=== PATIENT | female | born 2000 | race Caucasian/White ===

== ENCOUNTER 2022-02-16 00:38 | Emergency (ER) | payer OTHER ==
[2022-02-16 00:46] VITALS: BP 125/80; PULSE 88; RESP 19; TEMP 98
[2022-02-16] MEDS ORDERED: CEPHALEXIN 500 MG CAP PO STA (00:57)
[2022-02-16] MEDS ORDERED: ACETAMINOPHEN TAB 500 MG TAB PO STA (00:57)
[2022-02-16] MEDS ORDERED: IBUPROFEN 800 MG TAB PO STA (00:57)
--- NOTE | 2022-02-16 00:57 | ED ---
Extremity Problem HPI - General Chief complaint: Extremity Problem,Nontraumatic Stated complaint: toe pain Time Seen by Provider: 02/16/22 00:51 Source: patient, RN notes reviewed, old records reviewed Mode of arrival: ambulatory Limitations: no limitations - History of Present Illness Initial comments: This is a 21-year-old female to the emergency department for evaluation, patient presents today for evaluation of toe pain middle toe pain of his left toe. No trauma noted. Patient has significant tenderness and difficulty walking on toes secondary tenderness. Patient is without any other complaint MD Complaint: extremity pain -: days(s) Location: left, other History of Same: Yes -: Yes arthralgia Radiation: none (Hospital to obtain) Severity scale (1-10): 4 Quality: aching Consistency: constant Improves with: nothing Worsens with: nothing Associated Symptoms: other (0) - Related Data Previous Rx's Medication Instructions Recorded Cephalexin [Keflex] 500 mg PO Q6HR #40 cap 02/16/22 Allergies Allergy/AdvReac Type Severity Reaction Status Date / Time No Known Allergies Allergy Verified 02/16/22 00:46 Review of Systems ROS Statement: Those systems with pertinent positive or pertinent negative responses have been documented in the HPI. ROS Other: All systems not noted in ROS Statement are negative. Past Medical History Past Medical History: No Reported History Past Surgical History: No Surgical Hx Reported Past Psychological History: No Psychological Hx Reported Smoking Status: Never smoker Past Alcohol Use History: None Reported Past Drug Use History: None Reported General Exam General appearance: alert, in no apparent distress Head exam: Present: atraumatic, normocephalic, normal inspection Eye exam: Present: normal appearance, PERRL, EOMI. Absent: scleral icterus, conjunctival injection, periorbital swelling ENT exam: Present: normal exam, mucous membranes moist Neck exam: Present: normal inspection. Absent: tenderness, meningismus, lymphadenopathy Respiratory exam: Present: normal lung sounds bilaterally. Absent: respiratory distress, wheezes, rales, rhonchi, stridor Cardiovascular Exam: Present: regular rate, normal rhythm, normal heart sounds. Absent: systolic murmur, diastolic murmur, rubs, gallop, clicks GI/Abdominal exam: Present: soft, normal bowel sounds. Absent: distended, tenderness, guarding, rebound, rigid Extremities exam: Present: normal inspection, full ROM, normal capillary refill, other (Left (Middle toe does have draining paronychia). Absent: tenderness, pedal edema, joint swelling, calf tenderness Back exam: Present: normal inspection Neurological exam: Present: alert, oriented X3, CN II-XII intact Psychiatric exam: Present: normal affect, normal mood Skin exam: Present: warm, dry, intact, normal color. Absent: rash Course Vital Signs 02/16/22 00:44 Temperature 98 F Pulse Rate 88 Respiratory 19 Rate Blood Pressure 125/80 O2 Sat by Pulse 98 Oximetry - Reevaluation(s) Reevaluation #1: 02/16/22 Medical record is reviewed Reevaluation #2: 02/16/22 Patient symptoms are improved Reevaluation #3: 02/16/22 Patient informed of results and questions answered Medical Decision Making - Medical Decision Making 21 female is draining paronychia of toe. Patient given antibiotics encouraged to continue soaking and rinsing, patient can be discharged home Disposition Clinical Impression: Paronychia of toe of right foot Disposition: HOME SELF-CARE Condition: Good Instructions (If sedation given, give patient instructions): Paronychia (ED) Prescriptions: Cephalexin [Keflex] 500 mg PO Q6HR #40 cap Is patient prescribed a controlled substance at d/c from ED?: No Referrals: Beatriz Hobbs MD [Primary Care Provider] - 1-2 days Time of Disposition: 01:00
== END 2022-02-16 01:06 | disposition home or self-care (01) ==
LOC: EC 00:38
DX: L03.031 Cellulitis of right toe (principal)
CPT/HCPCS: 99282

== ENCOUNTER → 2022-02-24 | Outpatient (CLI) | payer OTHER ==
--- NOTE | 2022-02-24 10:25 | US ---
EXAMINATION TYPE: US abdomen complete DATE OF EXAM: 02/24/2022 COMPARISON: NONE CLINICAL HISTORY: R10.9 INTERMITTENT ABD PAIN. Acid reflux TECHNIQUE: Multiple sonographic images of the abdomen are obtained. FINDINGS: EXAM MEASUREMENTS: Liver Length: 14.5 cm Gallbladder Wall: 0.2 cm CBD: 0.3 cm Spleen: 9.2 cm Right Kidney: 12.0 x 4.6 x 6.1 cm Left Kidney: 11.9 x 5.1 x 5.2 cm Pancreas: visualized portions wnl, limited by overlying midline bowel gas Liver: wnl Gallbladder: wnl Evidence for sonographic Sauer's sign: no CBD: visualized portions wnl, limited by overlying bowel gas Spleen: visualized portions wnl, limited by overlying bowel gas Right Kidney: wnl Left Kidney: visualized portions wnl, limited by overlying bowel gas Upper IVC: wnl Abd Aorta: wnl IMPRESSION: 1. Exam is somewhat limited due to bowel gas. Visualized portions of the abdomen appear unremarkable.
== END | disposition home or self-care (01) ==
LOC: RADUSWWP 09:00 → EDUNIT# 09:00
PROVIDERS: ATTEND Family Medicine
DX: R10.9 Unspecified abdominal pain (principal)
CPT/HCPCS: 76700

== ENCOUNTER → 2022-03-05 | Outpatient (CLI) | payer OTHER ==
--- NOTE | 2022-03-05 11:01 | MR ---
EXAMINATION TYPE: MR brain wo con DATE OF EXAM: 03/05/2022 8:13 AM COMPARISON: None. CLINICAL INDICATION:Female, 21 years old with history of R51.9; [facility] TECHNIQUE: Multi planar, multi sequence imaging was performed through the brain including: T1, T2, In version recovery, Diffusion weighted imaging, and gradient echo imaging. No gadolinium was given. FINDINGS: The galeana-white junctions, ventricular system, and cisterns appear unremarkable. . Midline structures show no abnormality. Diffusion-weighted imaging shows no evidence of restricted diffusion. The bone marrow signal is within normal limits. The paranasal sinuses and mild mucosal thickening thr oughout the paranasal sinuses worse in the sphenoid sinuses. The globes are unremarkable. IMPRESSION: 1. No evidence of intracranial mass or acute/subacute infarct. 2. Moderate paranasal sinus disease.
== END | disposition home or self-care (01) ==
LOC: RADMRIMAIN 07:33 → EDUNIT# 07:45
PROVIDERS: ATTEND Family Medicine
DX: R51.9 Headache, unspecified (principal); G89.29 Other chronic pain; J34.89 Other specified disorders of nose and nasal sinuses
CPT/HCPCS: 70551

== ENCOUNTER 2022-04-26 10:50 | Emergency (ER) | payer OTHER ==
[2022-04-26 11:05] VITALS: TEMP 98.4
--- NOTE | 2022-04-26 11:39 | ED ---
URI HPI - General Chief Complaint: Upper Respiratory Infection Stated Complaint: Covid Time Seen by Provider: 04/26/22 11:19 Source: patient, RN notes reviewed Mode of arrival: ambulatory Limitations: no limitations - History of Present Illness Initial Comments: This is a 21-year-old female who presents to the emergency department for coughing and congestion that started this morning. She is being evaluated here with her mother who has similar symptoms. Her brother tested positive for COVID several days ago, and she is requesting a COVID test because she is supposed to go to [place] tomorrow. States that she had an MRI a few days ago and was told that she has small nasal passages and is prone to congestion/sinusitis. She did take an antihistamine last night with mild relief. Denies any respiratory illnesses or difficulty breathing. Denies any fevers, chills, sore throat, dyspnea, chest pain, palpitations, abdominal pain, nausea, vomiting, diarrhea, or back pain. MD Complaint: cough, nasal congestion Context: sick contacts - Related Data Previous Rx's Medication Instructions Recorded Cephalexin [Keflex] 500 mg PO Q6HR #40 cap 02/16/22 Ipratropium [place] 0.06%Nasal 2 spray EA NOSTRIL BID #15 ml 04/26/22 [Atrovent Nasal 0.06%] Allergies Allergy/AdvReac Type Severity Reaction Status Date / Time No Known Allergies Allergy Verified 04/26/22 11:05 Review of Systems ROS Statement: Those systems with pertinent positive or pertinent negative responses have been documented in the HPI. ROS Other: All systems not noted in ROS Statement are negative. Past Medical History Past Medical History: No Reported History History of Any Multi-Drug Resistant Organisms: None Reported Past Surgical History: No Surgical Hx Reported Past Psychological History: No Psychological Hx Reported Smoking Status: Never smoker Past Alcohol Use History: None Reported Past Drug Use History: None Reported General Exam Limitations: no limitations General appearance: alert, in no apparent distress Head exam: Present: atraumatic, normocephalic, normal inspection ENT exam: Present: normal exam, mucous membranes moist, TM's normal bilaterally, normal external ear exam Neck exam: Present: normal inspection. Absent: tenderness, meningismus, lymphadenopathy Respiratory exam: Present: normal lung sounds bilaterally. Absent: respiratory distress, wheezes, rales, rhonchi, stridor Cardiovascular Exam: Present: regular rate, normal rhythm, normal heart sounds. Absent: systolic murmur, diastolic murmur, rubs, gallop, clicks Neurological exam: Present: alert, oriented X3, CN II-XII intact Psychiatric exam: Present: normal affect, normal mood Skin exam: Present: warm, dry, intact, normal color. Absent: rash Course Vital Signs 04/26/22 04/26/22 11:04 12:18 Temperature 98.4 F Pulse Rate 81 78 Respiratory 20 18 Rate Blood Pressure 136/89 122/4 O2 Sat by Pulse 99 99 Oximetry Medical Decision Making - Medical Decision Making This is a 21-year-old female who presents to the emergency department for coughing and congestion. COVID test is negative. Prescription for ipratropium bromide nasal spray provided to help with postnasal drainage contributing to the cough. Recommended a decongestant nasal spray prior to her flight to limit discomfort associated with the congestion. She is instructed to avoid using this for more than 3 consecutive days due to the risk of dependence. Advised to be retested for COVID if symptoms persist, as it may be too early for the test to turn positive. Advised symptomatic management as needed, making sure that she gets plenty of rest, and drinks plenty of water. Return precautions reviewed in depth, the patient is instructed to return to the emergency department with any new, worsening, or concerning symptoms. Patient verbalized understanding. This case was discussed in detail with the attending ED physician. Presentation, findings, and treatment plan discussed in detail as well. - Lab Data Lab Results 04/26/22 Range/Units 11:07 Coronavirus (PCR) Not Detected (Not Detectd) Disposition Clinical Impression: Viral upper respiratory illness Disposition: HOME SELF-CARE Instructions (If sedation given, give patient instructions): Upper Respiratory Infection (ED) Additional Instructions: Return to the emergency department with any new, worsening, or concerning symptoms. The prescribed nasal spray can be used for the nasal drainage that is causing your cough. You can also take [id number] allergy medication with this. Use a decongestant nasal spray before the flight to reduce the discomfort. Avoid using decongestant spray for more than 3 consecutive days, as you may develop a dependence. Continue with symptomatic management as needed. Make sure that you get plenty of rest and remain well-hydrated. If your symptoms persist, consider being retested for COVID. Prescriptions: Ipratropium [place] 0.06%Nasal [Atrovent Nasal 0.06%] 2 spray EA NOSTRIL BID #15 ml Is patient prescribed a controlled substance at d/c from ED?: No Referrals: Beatriz Hobbs MD [Primary Care Provider] - 1-2 days
[2022-04-26 12:21] VITALS: BP 122/4; PULSE 78; RESP 18
== END 2022-04-26 12:21 | disposition home or self-care (01) ==
LOC: EC 10:50
DX: J06.9 Acute upper respiratory infection, unspecified (principal); Z20.822 Contact with and (suspected) exposure to COVID-19
CPT/HCPCS: 87635; 99283

== ENCOUNTER 2022-08-13 01:03 | Observation (INO) | payer OTHER ==
[2022-08-13] MEDS ORDERED: SODIUM CHLORIDE 0.9% 1,000 ML IV STA ×2 (01:11→01:57)
[2022-08-13 02:00] LABS: Appearance,Urine Clear (Clear); Basophils % (A) 0 %; Bilirubin,Urine Negative (Negative); Blood,Urine Negative (Negative); Color,Urine Light Yellow; Eosinophils % (A) 0 %; Glucose,Urine (UA) Negative (Negative); HCT 36.8 % (34.0-46.0); HGB 11.8 gm/dL (11.4-16.0); Ketones,Urine Negative (Negative); Leukocyte Esterase,Urine Negative (Negative); Lymphocytes # (A) 1.4 k/uL (1.0-4.8); Lymphocytes % (A) 13 %; MCH 25.1 pg (25.0-35.0); MCHC 32.2 g/dL (31.0-37.0); MCV 78.1 fL (80.0-100.0); Mean Platelet Volume 8.3; Monocytes # (A) 0.4 k/uL (0-1.0); Monocytes % (A) 4 %; Neutrophils # (A) 9.1 k/uL (1.3-7.7); Neutrophils % (A) 82 %; Nitrite,Urine Negative (Negative); PH, Urine 6.5 (5.0-8.0); Platelet Count 233 k/uL (150-450); Protein,Urine Negative (Negative); RBC 4.71 m/uL (3.80-5.40); RDW 13.9 % (11.5-15.5); Specific Gravity,Urine 1.006 (1.001-1.035); Urobilinogen,Urine <2.0 mg/dL (<2.0); WBC 11.1 k/uL (4.0-11.0)
--- NOTE | 2022-08-13 02:02 | ED ---
General Adult HPI - General Chief complaint: Psychiatric Symptoms Stated complaint: Mental Health Time Seen by Provider: 08/13/22 01:06 Source: patient, RN notes reviewed, old records reviewed Mode of arrival: EMS Limitations: no limitations - History of Present Illness Initial comments: Patient is a 21-year-old female who presents emergency Department following an overdose and suicide attempt. Patient has a history of psychiatric illness. Is on Prozac at home. Was brought in by EMS over concern for suicidal attempt. States at midnight, or a little before she took 10-30 Prozac pills at once. States it was a suicidal attempt. States in the past she did attempt to take Tylenol for suicidal attempt was unsuccessful. Also reports a history of self injuring behavior. States she has been under more stress lately which prompted her to feel like this. Denies any homicidal attempts, plans, ideations. Denies any visual or auditory hallucinations. He was brought in by EMS for further evaluation. Denies any acute complaints at this time but states she feels anxious. Denies chest pain, shortness of breath, abdominal pain, nausea, vomiting. Presents for evaluation following overdose. Denies taking any other medications or ingesting any other drugs. Denies alcohol use. No other medical problems. Patient was evaluated at approximately 1:06 AM.Patient was petitioned by [employer] for her suicide attempt. - Related Data Previous Rx's Medication Instructions Recorded Cephalexin [Keflex] 500 mg PO Q6HR #40 cap 02/16/22 Ipratropium [place] 0.06%Nasal 2 spray EA NOSTRIL BID #15 ml 04/26/22 [Atrovent Nasal 0.06%] Allergies Allergy/AdvReac Type Severity Reaction Status Date / Time No Known Allergies Allergy Verified 04/26/22 11:05 Review of Systems ROS Statement: Those systems with pertinent positive or pertinent negative responses have been documented in the HPI. Review of Systems: CONST: Denies fever EYES: Denies blurry vision ENT: Denies nasal congestion C/V: Denies Chest pain RESP: Denies shortness of breath GI: Denies abdominal pain : Denies dysuria SKIN: Denies rash. MSK: Denies joint pain. NEURO: Denies headache PSYCH: Denies homicidal ideations/plans/attempts. Denies visual or auditory hallucinations. She endorses suicide attempt via overdose of Prozac. ROS Other: All systems not noted in ROS Statement are negative. Past Medical History Past Medical History: No Reported History History of Any Multi-Drug Resistant Organisms: None Reported Past Surgical History: No Surgical Hx Reported Past Psychological History: No Psychological Hx Reported Smoking Status: Never smoker Past Alcohol Use History: None Reported Past Drug Use History: None Reported General Exam - General Exam Comments Initial Comments: General: Patient appears anxious. HEAD: Normal with no signs of head trauma. EYES: PERRLA, EOMI, conjunctiva normal, no discharge. Pupils are 3 mm equal bilaterally. ENT: Hearing grossly intact, normal oropharynx. RESPIRATORY: Clear breath sounds bilaterally. No wheezes, rales, or rhonchi. C/V: Tachycardic with a regular rhythm. S1 and S2 auscultated, no edema, peripheral pulses 2+ and intact throughout ABD: Abd is soft, nontender, nondistended EXT: Normal range of motion, no obvious deformity SKIN: No rashes or lesions observed on exposed skin. NEURO: Alert and oriented x 4. Cranial nerves II-XII intact. No focal sensory or strength deficits. GCS of 15. NIH is 0. Limitations: no limitations Course Vital Signs 08/13/22 08/13/22 01:22 02:35 Temperature 99 F Pulse Rate 128 H 112 H Respiratory 16 16 Rate Blood Pressure 151/95 O2 Sat by Pulse 98 Oximetry Medical Decision Making - Medical Decision Making Based the patient's presentation and physical exam, she presents for Prozac overdose. She currently has no symptoms. Overdose started approximately one hour ago. We will obtain overdose workup including labs, EKG, chest x-ray. She'll be given IV fluids as well as IV Zofran. Patient was in agreement this plan. Vital signs are remarkable for tachycardia the patient is extremely anxious. We will continue to monitor. Patient was placed in green scrubs. Sitter was ordered. Suicide precautions were ordered. Recheck to poison control, and they recommend an 8 hour observation period for the patient. They instructed us to watch for BREAKER LAYER depression or possible seizures with high overdoses. Treat with benzos. He also recommended that we replace any electrolyte specifically magnesium, potassium, calcium. There are like us to watch for QT prolongation as well. Initial EKG shows no signs of QT prolongation. Patient is tachycardic. We will repeat EKG approximately one hour.Patient's laboratory studies returned remarkable for a slight leukocytosis of 11.1 which is likely reactive. Patient is not . Troponin is undetectable. UDS is positive for benzos. Alcohol level is negative. Remainder of the labs are unremarkable. X-ray s howed no acute cardio pulmonary process. Repeat EKG was unremarkable. Patient is no QT prolongation. On reevaluation, there is no neurological deficits at this time. I attempted the patient as well as her mother. She'll be admitted to the hospital for observation for 8 hours and then psychiatry will evaluate her. They were in agreement this plan. I spoke with the admitting physician, Dr. Lawrence who accepted the patient. Was pt. sent in by a medical professional or institution (, PA, CHEESE SUPERVISOR, urgent care, hospital, or correction...) When possible be specific @ -No Did you speak to anyone other than the patient for history (EMS, parent, family, police, friend...)? What history was obtained from this source @ -Yes, patient's mother who provided some additional history. Did you review nursing and triage notes (agree or disagree)? Why? @ -I reviewed and agree with nursing and triage notes Were old charts reviewed (outside hosp., previous admission, EMS record, old EKG, old radiological studies, urgent care reports/EKG's, correction records)? Report findings @ -Yes, I reviewed old charts. Differential Diagnosis (chest pain, altered mental status, abdominal pain women, abdominal pain men, vaginal bleeding, weakness, fever, dyspnea, syncope, headache, dizziness, GI bleed, back pain, seizure, CVA, palpatations, mental health)? @ -Overdose, suicide attempt, acute psychosis, anxiety. This list is not all- inclusive. EKG interpreted by me (3pts min.). @ -As above X-rays interpreted by me (1pt min.). @ -Chest x-ray revealed no acute cardio pulmonary process. CT interpreted by me (1pt min.). @ -None done U/S interpreted by me (1pt. min.). @ -None done What testing was considered but not performed or refused? (CT, X-rays, U/S, labs)? Why? @ -None What meds were considered but not given or refused? Why? @ -None Did you discuss the management of the patient with other professionals (professionals i.e. , PA, CHEESE SUPERVISOR, lab, RT, psych nurse, social service technician, supply analyst, teacher, jail officer, medical case worker)? Give summary @ -Yes, poison control who recommended 8 hour observation, monitoring for BREAKER LAYER depression or seizures and to treat with benzos if seizing. Monitor electrolytes. Monitor for QT prolongation. I spoke with [facility] admitting physician Dr. Lawrence who accepted the patient. Was smoking cessation discussed for >3mins.? @ -No Was critical care preformed (if so, how long)? @ -Yes. 35 minutes. Were there social determinants of health that impacted care today? How? (Homelessness, low income, unemployed, alcoholism, drug addiction, transportation, low edu. Level, literacy, decrease access to med. care, mcc, rehab)? @ -No Was there de-escalation of care discussed even if they declined (Discuss DNR or withdrawal of care, Hospice)? DNR status @ -No What co-morbidities impacted this encounter? (DM, HTN, Smoking, COPD, CAD, Cancer, CVA, ARF, Chemo, Hep., AIDS, mental health diagnosis, sleep apnea, morbid obesity)? @ -None Was patient admitted / discharged? Hospital course, mention meds given and route, prescriptions, significant lab abnormalities, going to OR and other pertinent info. @ -Admitted to the hospital for observation. See above for her ED course. Undiagnosed new problem with uncertain prognosis? @ -No Drug Therapy requiring intensive monitoring for toxicity (Heparin, Nitro, Insulin, Cardizem)? @ -No Were any procedures done? @ -No Diagnosis/symptom? @ -Intentional Overdose, Prozac Acute, or Chronic, or Acute on Chronic? @ -Acute Uncomplicated (without systemic symptoms) or Complicated (systemic symptoms)? @ -Currently uncomplicated. Side effects of treatment? @ -No Exacerbation, Progression, or Severe Exacerbation? @ -No Poses a threat to life or bodily function? How? (Chest pain, [place], ND, pneumonia, PE, COPD, DKA, ARF, appy, cholecystitis, CVA, Diverticulitis, Homicidal, Suicidal, threat to staff... and all critical care pts) @ -Yes, patient is at risk for significant morbidity mortality. Diagnosis/symptom? @ -Suicide attempt Acute, or Chronic, or Acute on Chronic? @ -Acute Uncomplicated (without systemic symptoms) or Complicated (systemic symptoms)? @ -Complicated Side effects of treatment? @ -None Exacerbation, Progression, or Severe Exacerbation] @ -no Poses a threat to life or bodily function? @ -Yes, patient is at risk for significant morbidity mortality. Diagnosis/symptom? @ -Sinus tachycardia Acute, or Chronic, or Acute on Chronic? @ -Acute Uncomplicated (without systemic symptoms) or Complicated (systemic symptoms)? @ -Uncomplicated Side effects of treatment? @ -none Exacerbation, Progression, or Severe Exacerbation] @ -no Poses a threat to life or bodily function? @ -no - Lab Data Result diagrams: 08/13/22 01:33 08/13/22 01:33 Lab Results 08/13/22 08/13/22 08/13/22 Range/Units :33 01::33 WBC 11.1 H (4.0-11.0) k/uL RBC 4.71 (3.80-5.40) m/uL Hgb 11.8 (11.4-16.0) gm/dL Hct 36.8 (34.0-46.0) % MCV 78.1 L (80.0-100.0) fL MCH 25.1 (25.0-35.0) pg MCHC 32.2 (31.0-37.0) g/dL RDW 13.9 (11.5-15.5) % Plt Count 233 (150-450) k/uL MPV 8.3 Neutrophils % 82 % Lymphocytes % 13 % Monocytes % 4 % Eosinophils % 0 % Basophils % 0 % Neutrophils # 9.1 H (1.3-7.7) k/uL Lymphocytes # 1.4 (1.0-4.8) k/uL Monocytes # 0.4 (0-1.0) k/uL Eosinophils # 0.0 (0-0.7) k/uL Basophils # 0.0 (0-0.2) k/uL PT (9.0-12.0) sec INR (<1.2) Sodium (137-145) mmol/L Potassium (3.5-5.1) mmol/L Chloride (98-107) mmol/L Carbon Dioxide (22-30) mmol/L Anion Gap mmol/L BUN (7-17) mg/dL Creatinine (0.52-1.04) mg/dL Est GFR (CKD-EPI)AfAm (>60 ml/min/1.73 sqM) Est GFR (CKD-EPI)NonAf (>60 ml/min/1.73 sqM) Glucose (74-99) mg/dL Calcium (8.4-10.2) mg/dL Total Bilirubin (0.2-1.3) mg/dL AST (14-36) U/L ALT (4-34) U/L Alkaline Phosphatase (38-126) U/L Troponin I (0.000-0.034) ng/mL Total Protein (6.3-8.2) g/dL Albumin (3.5-5.0) g/dL Amylase (30-110) U/L Lipase (23-300) U/L HCG, Qual Urine Color Urine Appearance (Clear) Urine pH (5.0-8.0) Ur Specific [place] (1.001-1.035) Urine Protein (Negative) Urine Glucose (UA) (Negative) Urine Ketones (Negative) Urine Blood (Negative) Urine Nitrite (Negative) Urine Bilirubin (Negative) Urine Urobilinogen (<2.0) mg/dL Ur Leukocyte Esterase (Negative) Urine HCG, Qual Not Detected (Not Detectd) Salicylates mg/dL Urine Opiates Screen Not Detected (NotDetected) Ur Oxycodone Screen Not Detected (NotDetected) Urine Methadone Screen Not Detected (NotDetected) Ur Propoxyphene Screen Not Detected (NotDetected) Acetaminophen ug/mL Ur Barbiturates Screen Not Detected (NotDetected) U Tricyclic Antidepress Not Detected (NotDetected) Ur Phencyclidine Scrn Not Detected (NotDetected) Ur Amphetamines Screen Not Detected (NotDetected) U Methamphetamines Scrn Not Detected (NotDetected) U Benzodiazepines Scrn Detected H (NotDetected) Urine Cocaine Screen Not Detected (NotDetected) U Marijuana (THC) Screen Not Detected (NotDetected) Serum Alcohol mg/dL 08/13/22 08/13/22 08/13/22 Range/Units 01:33 01:33 01:33 WBC (4.0-11.0) k/uL RBC (3.80-5.40) m/uL Hgb (11.4-16.0) gm/dL Hct (34.0-46.0) % MCV (80.0-100.0) fL MCH (25.0-35.0) pg MCHC (31.0-37.0) g/dL RDW (11.5-15.5) % Plt Count (150-450) k/uL MPV Neutrophils % % Lymphocytes % % Monocytes % % Eosinophils % % Basophils % % Neutrophils # (1.3-7.7) k/uL Lymphocytes # (1.0-4.8) k/uL Monocytes # (0-1.0) k/uL Eosinophils # (0-0.7) k/uL Basophils # (0-0.2) k/uL PT 9.9 (9.0-12.0) sec INR 0.9 (<1.2) Sodium 138 (137-145) mmol/L Potassium 4.1 (3.5-5.1) mmol/L Chloride 108 H (98-107) mmol/L Carbon Dioxide 20 L (22-30) mmol/L Anion Gap 10 mmol/L BUN 8 (7-17) mg/dL Creatinine 0.56 (0.52-1.04) mg/dL Est GFR (CKD-EPI)AfAm >90 (>60 ml/min/1.73 sqM) Est GFR (CKD-EPI)NonAf >90 (>60 ml/min/1.73 sqM) Glucose 126 H (74-99) mg/dL Calcium 8.6 (8.4-10.2) mg/dL Total Bilirubin 0.3 (0.2-1.3) mg/dL AST 18 (14-36) U/L ALT 20 (4-34) U/L Alkaline Phosphatase 102 (38-126) U/L Troponin I (0.000-0.034) ng/mL Total Protein 6.6 (6.3-8.2) g/dL Albumin 3.9 (3.5-5.0) g/dL Amylase 39 (30-110) U/L Lipase 87 (23-300) U/L HCG, Qual Not Detected Urine Color Light Yellow Urine Appearance Clear (Clear) Urine pH 6.5 (5.0-8.0) Ur Specific [place] 1.006 (1.001-1.035) Urine Protein Negative (Negative) Urine Glucose (UA) Negative (Negative) Urine Ketones Negative (Negative) Urine Blood Negative (Negative) Urine Nitrite Negative (Negative) Urine Bilirubin Negative (Negative) Urine Urobilinogen <2.0 (<2.0) mg/dL Ur Leukocyte Esterase Negative (Negative) Urine HCG, Qual (Not Detectd) Salicylates <1.0 mg/dL Urine Opiates Screen (NotDetected) Ur Oxycodone Screen (NotDetected) Urine Methadone Screen (NotDetected) Ur Propoxyphene Screen (NotDetected) Acetaminophen <10.0 ug/mL Ur Barbiturates Screen (NotDetected) U Tricyclic Antidepress (NotDetected) Ur Phencyclidine Scrn (NotDetected) Ur Amphetamines Screen (NotDetected) U Methamphetamines Scrn (NotDetected) U Benzodiazepines Scrn (NotDetected) Urine Cocaine Screen (NotDetected) U Marijuana (THC) Screen (NotDetected) Serum Alcohol <10 mg/dL 08/13/22 Range/Units 01:33 WBC (4.0-11.0) k/uL RBC (3.80-5.40) m/uL Hgb (11.4-16.0) gm/dL Hct (34.0-46.0) % MCV (80.0-100.0) fL MCH (25.0-35.0) pg MCHC (31.0-37.0) g/dL RDW (11.5-15.5) % Plt Count (150-450) k/uL MPV Neutrophils % % Lymphocytes % % Monocytes % % Eosinophils % % Basophils % % Neutrophils # (1.3-7.7) k/uL Lymphocytes # (1.0-4.8) k/uL Monocytes # (0-1.0) k/uL Eosinophils # (0-0.7) k/uL Basophils # (0-0.2) k/uL PT (9.0-12.0) sec INR (<1.2) Sodium (137-145) mmol/L Potassium (3.5-5.1) mmol/L Chloride (98-107) mmol/L Carbon Dioxide (22-30) mmol/L Anion Gap mmol/L BUN (7-17) mg/dL Creatinine (0.52-1.04) mg/dL Est GFR (CKD-EPI)AfAm (>60 ml/min/1.73 sqM) Est GFR (CKD-EPI)NonAf (>60 ml/min/1.73 sqM) Glucose (74-99) mg/dL Calcium (8.4-10.2) mg/dL Total Bilirubin (0.2-1.3) mg/dL AST (14-36) U/L ALT (4-34) U/L Alkaline Phosphatase (38-126) U/L Troponin I <0.012 (0.000-0.034) ng/mL Total Protein (6.3-8.2) g/dL Albumin (3.5-5.0) g/dL Amylase (30-110) U/L Lipase (23-300) U/L HCG, Qual Urine Color Urine Appearance (Clear) Urine pH (5.0-8.0) Ur Specific [place] (1.001-1.035) Urine Protein (Negative) Urine Glucose (UA) (Negative) Urine Ketones (Negative) Urine Blood (Negative) Urine Nitrite (Negative) Urine Bilirubin (Negative) Urine Urobilinogen (<2.0) mg/dL Ur Leukocyte Esterase (Negative) Urine HCG, Qual (Not Detectd) Salicylates mg/dL Urine Opiates Screen (NotDetected) Ur Oxycodone Screen (NotDetected) Urine Methadone Screen (NotDetected) Ur Propoxyphene Screen (NotDetected) Acetaminophen ug/mL Ur Barbiturates Screen (NotDetected) U Tricyclic Antidepress (NotDetected) Ur Phencyclidine Scrn (NotDetected) Ur Amphetamines Screen (NotDetected) U Methamphetamines Scrn (NotDetected) U Benzodiazepines Scrn (NotDetected) Urine Cocaine Screen (NotDetected) U Marijuana (THC) Screen (NotDetected) Serum Alcohol mg/dL - EKG Data -: EKG Interpreted by Me EKG Comments: 12-lead Electrocardiogram Interpretation Note EKG was reviewed and interpreted by myself. 12-lead ECG performed at 0114 is interpreted by me as revealing sinus tachycardia at a rate of 140 beats per minute. [place] is normal. [place] interval is 105 ms, QRS duration is 82 ms, QTc is 410 ms.. There were no ST or T wave abnormalities to suggest myocardial ischemia or injury. R wave progression across the precordium was satisfactory. By my interpretation this EKG is non-diagnostic for acute ischemia. No prior ekg for comparison. 12-lead Electrocardiogram Interpretation Note EKG was reviewed and interpreted by myself. 12-lead ECG performed at 2030 is interpreted by me as revealing sinus tachycardia at a rate of 110 beats per minute. [place] is normal. [place] interval is 140 ms, QRS duration is 85 ms, QTc is 397 ms.. There were no ST or T wave abnormalities to suggest myocardial ischemia or injury. R wave progression across the precordium was satisfactory. By my interpretation this EKG is non-diagnostic for acute ischemia. When compared with EKG from earlier, shows improvement in the tachycardia. QT interval remains within normal limits. Critical Care Time Critical Care Time: Yes Total Critical Care Time: 35 Critical Care Time: Upon my evaluation, this patient had a high probability of imminent or life- threatening deterioration due to suicide attempt, Prozac ingestion overdose, which required my direct attention, intervention, and personal management. I have personally provided 35 minutes of critical care time exclusive of time spent on separately billable procedures. Time includes review of laboratory data, radiology results, discussion with consultants, and monitoring for potential decompensation. Interventions were performed as documented in my note. Disposition Clinical Impression: Overdose by ingestion, Sinus tachycardia, Suicide attempt Disposition: ADMITTED IP TO THIS HOSP Condition: Stable Referrals: Beatriz Hobbs MD [Primary Care Provider] - 1-2 days Time of Disposition: 03:00
[2022-08-13 02:11] LABS: INR 0.9 (<1.2); Prothrombin Time 9.9 sec (9.0-12.0)
--- NOTE | 2022-08-13 02:17 | XR ---
EXAMINATION TYPE: XR chest 1V portable DATE OF EXAM: 08/13/2022 COMPARISON: NONE HISTORY: Overdose TECHNIQUE: Single view FINDINGS: Heart and mediastinum are normal. Lungs are clear. Diaphragm is normal. Bony thorax appears normal. IMPRESSION: Normal chest
[2022-08-13 02:22] LABS: ALT 20 U/L (4-34); AST 18 U/L (14-36); Acetaminophen <10.0 ug/mL; African American GFR (CKD) >90 (>60 ml/min/1.73 sqM); Albumin 3.9 g/dL (3.5-5.0); Alcohol <10 mg/dL; Alkaline Phosphatase 102 U/L (38-126); Amylase 39 U/L (30-110); Anion Gap 10 mmol/L; Blood Urea Nitrogen 8 mg/dL (7-17); Calcium 8.6 mg/dL (8.4-10.2); Carbon Dioxide 20 mmol/L (22-30); Chloride 108 mmol/L (98-107); Glucose 126 mg/dL (74-99); Lipase 87 U/L (23-300); Non-African American GFR(CKD) >90 (>60 ml/min/1.73 sqM); Potassium 4.1 mmol/L (3.5-5.1); Salicylate <1.0 mg/dL; Sodium 138 mmol/L (137-145); Total Bilirubin 0.3 mg/dL (0.2-1.3); Total Protein 6.6 g/dL (6.3-8.2)
[2022-08-13 02:23] LABS: Amphetamine Screen,Urine Not Detected (NotDetected); Barbiturate Screen,Urine Not Detected (NotDetected); Benzodiazepines Screen,Urine Detected (NotDetected); Cocaine Screen,Urine Not Detected (NotDetected); Methadone Screen, Urine Not Detected (NotDetected); Opiate Screen,Urine Not Detected (NotDetected); Oxycodone Screen, Urine Not Detected (NotDetected); Phencyclidine Screen,Urine Not Detected (NotDetected); Tricyclic Antidepressant,Urine Not Detected (NotDetected); Urn Cannabinoid Scrn Not Detected (NotDetected)
[2022-08-13 02:27] LABS: HCG,Qualitative Serum Not Detected
[2022-08-13] MEDS ORDERED: NALOXONE 0.4 MG/ML 1 ML VIAL IV PRN (03:08)
[2022-08-13] MEDS ORDERED: ONDANSETRON 4 MG/2 ML VIAL IVP PRN (03:08)
[2022-08-13 05:15] VITALS: RESP 16
[2022-08-13] MEDS: HEPARIN SODIUM,PORCINE/PF 5,000 UNIT/0.5 ML SYRINGE SQ SCH ×2 (08:32→17:39)
[2022-08-13 13:15] VITALS: BP 112/72; PULSE 81; TEMP 98
[2022-08-13] MEDS ORDERED: FAMOTIDINE 20 MG TAB PO PRN (14:17)
[2022-08-13] MEDS ORDERED: ALBUTEROL NEBULIZED 2.5 MG/3 ML INHALATION PRN (14:17)
--- NOTE | 2022-08-13 14:25 | P.CN ---
Psychiatric Consult - . Consult date: 08/13/22 Consult:: 08/13/22 14:25 IDENTIFYING DATA: This patient is a 21-year-old female with a significant history of depression who presents her hospital on 08/13/2022 after an intentional overdose on Prozac. HISTORY OF PRESENT ILLNESS: The patient presented to the hospital on 08/13/2022 after an intentional overdose on Prozac. The patient reported that she was in an argument with her boyfriend and during this argument, the patient took a bunch of Prozac pills in her hand and ingested them all at once. She reports her intention at the time was to "go numb." She reports that 5 minutes after overdosing, she immediately wanted her family to notify EMS services. She was subsequently brought to the emergency department and the patient by [place] police. She reports that even prior to this overdose attempt, she has been dealing with significant symptoms of depression including decreased motivation, decreased energy, irregular appetite, and frequent crying episodes. She describes that she has been constantly laying down in bed all day. She does report that even prior to this overdose attempt, she engaged in self-injurious behavior by cutting herself on her left forearm 2 nights ago. Patient states th at she has had numerous attempts at suicide in the past by overdose however this is the first time that she has been to the hospital for this. In regards other mood disorders, the patient is not endorsing any significant symptoms of miim. She denies any periods of excessive energy, grandiosity, or increased goal-directed activity. In regards to psychotic symptoms, the patient denies any significant history of auditory or visual hallucinations. She denies any paranoia or other delusions. PAST PSYCHIATRIC HISTORY: Patient has a a history of depression. She has a previous trial with Prozac. Patient denies any previous psychiatric hospitalizations. Patient denies any psychiatric outpatient follow-up as she recently moved from [place] to [place] to be with her mother. She reports mul tiple attempts at suicide in the past by overdose. PAST MEDICAL HISTORY: Past Medical History: GERD History of Any Multi-Drug Resistant Organisms: None Reported Past Surgical History: No Surgical Hx Reported Past Psychological History: No Psychological Hx Reported Smoking Status: Never smoker Past Alcohol Use History: None Reported Past Drug Use History: None Reported ALLERGIES: NO KNOWN DRUG ALLERGIES CHEMICAL DEPENDENCY HISTORY: Patient reports no tobacco, alcohol, marijuana, or illicit drug use. FAMILY PSYCHIATRIC/SUBSTANCE USE HISTORY: The patient reports that "my whole family has bipolar disorder, depression, and anxiety." She states that this entails her 3 brothers and both of her parents. SOCIAL HISTORY: Patient was born and raised in [place]. She moved to [place] in 2020 to be with her mother. She then went to stay with her father for 3-4 months and then shortly returning back to [place]. Her parents have been and she was 8 years old. She reports that she is single, never , and has no children. She reports graduating high school. She was last employed in April when she was working at [employer]. She currently lives with her best friend, boyfriend, 3 brothers, stepfather, and mother. MENTAL STATUS EXAM: General Appearance: Patient appears to be stated age is alert, pleasant, and cooperative. Patient appears to have fair hygiene and grooming wearing hospital gown with fair eye contact. Behavior: Patient is calmly lying in bed without any agitated behavior. Speech: Patient's speech is fluent and nonpressured. Mood/Affect: Patient reports their mood is "just feeling numb", affect is histrionic and slightly expansive. Suicidality/Homicidality: Patient denies any current suicidal or homicidal ideation. Perceptions: Patient denies any visual hallucinations and denies any auditory hallucinations Though content/process: There is no evidence of any delusional thought content and thought process is linear and goal-directed. Memory and concentration: AOX3, grossly intact for the purposes of this session. Can spell "WORLD" backwards Judgment and insight: poor Vital Signs Temp 98.0 F 08/13/22 12:17 Pulse 81 08/13/22 12:17 Resp 16 08/13/22 12:17 BP 112/72 08/13/22 12:17 Pulse Ox 98 08/13/22 12:17 FiO2 Intake & Output 08/12/22 08/13/22 08/13/22 18:59 06:59 18:59 Intake Total 1999 Balance 1999 Weight 90.718 kg Intake: Intake, IV Titration 2000 Amount Sodium Chloride 0.9% 1, 1000 000 ml @ 999 mls/hr IV . Q1H1M STA Rx#:[id number] Sodium Chloride 0.9% 1, 1000 000 ml @ 999 mls/hr IV . Q1H1M STA Rx#:[id number] Laboratory Results - Last 24 Hours 08/13/22 08/13/22 08/13/22 01:33 01:33 01:33 WBC 11.1 H RBC 4.71 Hgb 11.8 Hct 36.8 MCV 78.1 L MCH 25.1 MCHC 32.2 RDW 13.9 Plt Count 233 MPV 8.3 Neutrophils % 82 Lymphocytes % 13 Monocytes % 4 Eosinophils % 0 Basophils % 0 Neutrophils # 9.1 H Lymphocytes # 1.4 Monocytes # 0.4 Eosinophils # 0.0 Basophils # 0.0 PT INR Sodium Potassium Chloride Carbon Dioxide Anion Gap BUN Creatinine Est GFR (CKD-EPI)AfAm Est GFR (CKD-EPI)NonAf Glucose Plasma Lactic Acid Mark Calcium Total Bilirubin AST ALT Alkaline Phosphatase Troponin I Total Protein Albumin Amylase Lipase HCG, Qual Urine Color Urine Appearance Urine pH Ur Specific [place] Urine Protein Urine Glucose (UA) Urine Ketones Urine Blood Urine Nitrite Urine Bilirubin Urine Urobilinogen Ur Leukocyte Esterase Urine HCG, Qual Not Detected Salicylates Urine Opiates Screen Not Detected Ur Oxycodone Screen Not Detected Urine Methadone Screen Not Detected Ur Propoxyphene Screen Not Detected Acetaminophen Ur Barbiturates Screen Not Detected U Tricyclic Antidepress Not Detected Ur Phencyclidine Scrn Not Detected Ur Amphetamines Screen Not Detected U Methamphetamines Scrn Not Detected U Benzodiazepines Scrn Detected H Urine Cocaine Screen Not Detected U Marijuana (THC) Screen Not Detected Serum Alcohol 08/13/22 08/13/22 08/13/22 01:33 01:33 01:33 WBC RBC Hgb Hct MCV MCH MCHC RDW Plt Count MPV Neutrophils % Lymphocytes % Monocytes % Eosinophils % Basophils % Neutrophils # Lymphocytes # Monocytes # Eosinophils # Basophils # PT 9.9 INR 0.9 Sodium 138 Potassium 4.1 Chloride 108 H Carbon Dioxide 20 L Anion Gap 10 BUN 8 Creatinine 0.56 Est GFR (CKD-EPI)AfAm >90 Est GFR (CKD-EPI)NonAf >90 Glucose 126 H Plasma Lactic Acid Mark Calcium 8.6 Total Bilirubin 0.3 AST 18 ALT 20 Alkaline Phosphatase 102 Troponin I Total Protein 6.6 Albumin 3.9 Amylase 39 Lipase 87 HCG, Qual Not Detected Urine Color Light Yellow Urine Appearance Clear Urine pH 6.5 Ur Specific [place] 1.006 Urine Protein Negative Urine Glucose (UA) Negative Urine Ketones Negative Urine Blood Negative Urine Nitrite Negative Urine Bilirubin Negative Urine Urobilinogen <2.0 Ur Leukocyte Esterase Negative Urine HCG, Qual Salicylates <1.0 Urine Opiates Screen Ur Oxycodone Screen Urine Methadone Screen Ur Propoxyphene Screen Acetaminophen <10.0 Ur Barbiturates Screen U Tricyclic Antidepress Ur Phencyclidine Scrn Ur Amphetamines Screen U Methamphetamines Scrn U Benzodiazepines Scrn Urine Cocaine Screen U Marijuana (THC) Screen Serum Alcohol <10 08/13/22 08/13/22 08/13/22 01:33 01:33 05:51 WBC RBC Hgb Hct MCV MCH MCHC RDW Plt Count MPV Neutrophils % Lymphocytes % Monocytes % Eosinophils % Basophils % Neutrophils # Lymphocytes # Monocytes # Eosinophils # Basophils # PT INR Sodium Potassium Chloride Carbon Dioxide Anion Gap BUN Creatinine Est GFR (CKD-EPI)AfAm Est GFR (CKD-EPI)NonAf Glucose Plasma Lactic Acid Mark 1.1 Calcium Total Bilirubin AST ALT Alkaline Phosphatase Troponin I <0.012 Total Protein Albumin Amylase Lipase HCG, Qual Urine Color Urine Appearance Urine pH Ur Specific [place] Urine Protein Urine Glucose (UA) Urine Ketones Urine Blood Urine Nitrite Urine Bilirubin Urine Urobilinogen Ur Leukocyte Esterase Urine HCG, Qual Salicylates Urine Opiates Screen Ur Oxycodone Screen Urine Methadone Screen Ur Propoxyphene Screen Acetaminophen <10.0 Ur Barbiturates Screen U Tricyclic Antidepress Ur Phencyclidine Scrn Ur Amphetamines Screen U Methamphetamines Scrn U Benzodiazepines Scrn Urine Cocaine Screen U Marijuana (THC) Screen Serum Alcohol IMPRESSIONS: Major depressive disorder Borderline personality disorder PLAN: -At this time patient DOES meet criteria for inpatient psychiatric admission. The patient overdosed intentionally on a significant amount of Prozac. She will require inpatient psychiatric admission for appropriate safety planning and treatment. -Would recommend the following medication changes/additions: Due to the severity of the overdose with sinus tachycardia, we will hold on psychotropic medications at this time. -Continue 1:1 sitter for safety -Cannot leave AMA at this time. Patient will need a petition and certification if attempting to leave AMA. -When medically stable, patient is eligible for transfer to a psych bed when available. -Psychiatry will continue to follow. 08/13/22 14:25
--- NOTE | 2022-08-13 14:57 | P.HPIM ---
History of Present Illness H&P Date: 08/13/22 This is a 21-year-old female who presented to the emergency department via EMS and police and was petitioned for intentional suicide attempt. Patient reports she took anywhere from 10-30 of her prescribed Prozac during an argument with her boyfriend and was having increased depression anxiety and suicidal ideations. Patient reports she lives with her mother and follows with Dr. Kuhn his primary care provider with a past medical history of anxiety/depression and self-reported multiple suicide attempts previously. Patient also reports she has been self harming and cutting her skin on occasion. Patient reports she has been having increased anxiety and thoughts of wanting to harm herself and does follow with a psychiatrist in the outpatient setting. Patient denies smoking or illicit drug use and reports has drank alcohol on occasion. Poison control was contacted for the amount of Prozac ingested recommending to monitor on telemetry monitoring overnight and follow-up on electrolytes. On admission a WBC of 11.1 with a hemoglobin of 11.8, INR was 0.9, sodium was 138 with a potassium of 4.1, BUN is 8 with a creatinine of 0.56, lactic acid was 1.1, LFTs within normal limits, troponin was negative, amylase and lipase were negative and hCG was negative. Urinalysis was negative and urine drug screen only showed benzos and alcohol was negative. EKG showed sinus tachycardia with a ventricular rate of 110 bpm. Patient was admitted with suicidal ideation with an attempted suicide and psychiatric evaluation. Review Of Systems: Constitutional: No fever, no chills, no night sweats. No weight change. No weakness, fatigue or lethargy. No daytime sleepiness. EENT: No headache. No blurred vision or double vision, no loss of vision. No loss of Hearing, no ringing in the ears, no dizziness. No nasal drainage or congestion. No epistaxis. No sore throat. Lungs: No shortness of breath, cough, no sputum production. No wheezing. Cardiovascular: No chest pain, no lower extremity edema. No palpitations. No paroxysmal nocturnal dyspnea. No orthopnea. No lightheadedness or dizziness. No syncopal episodes. Abdominal: No abdominal pain. No nausea, vomiting. No diarrhea. No constipation. No bloody or tarry stools.. No loss of appetite. Genitourinary: No dysuria, increased frequency, urgency. No urinary retention. Musculoskeletal: No myalgias. No muscle weakness, no gait dysfunction, no frequent falls. No back pain. No neck pain. Integumentary: No wounds, no lesions. No rash or pruritus. No unusual bruising. No change in hair or nails. Neurologic: No aphasia. No facial droop. No change in mentation. No head injury. No headache. No paralysis. No paresthesia. Psychiatric: Reports depression. Reports anxiety. No mood swings. Endocrine: No abnormal blood sugars. No weight change. No excessive sweating or thirst. No cold intolerance. PHYSICAL EXAMINATION: GENERAL: The patient is alert and oriented x4, Well developed, well nourished. HEENT: Pupils are round and equally reacting to light. EOMI. no scleral icterus. No conjunctival pallor. Normocephalic, atraumatic. No pharyngeal erythema. No thyromegaly. CARDIOVASCULAR: S1 and S2 muffled, sinus tach PULMONARY: Breath sounds clear to auscultation with no wheezing or rhonchi noted ABDOMEN: soft. Nontender on exam. non-distended, normoactive bowel sounds. No palpable organomegaly. MUSCULOSKELETAL: No joint swelling or deformity. EXTREMITIES: No cyanosis, clubbing, or pedal edema. NEUROLOGICAL: Gross neurological examination did not reveal any focal deficits. SKIN: No rashes. Assessment: Suicidal ideation with suicide attempt with overdose ingesting 10-30 Prozac History of anxiety/depression Sinus tachycardia Mild leukocytosis, likely reactive GI prophylaxis DVT prophylaxis Full code Plan: Recommend to continue with current medications and management psychiatric service is consulted for evaluation. Patient was petitioned by the police of [place] due to her suicide attempt of ingestion of Prozac. Patient does follow with [facility] and receives her Prozac prescribed and also follows with Dr. Kuhn as her primary care provider in the outpatient setting. On exam patient reports she is not suicidal at this time and took the medication during an argument with her boyfriend. Patient reports she has attempted this before although made herself vomit immediately. Patient does have a product safety compliance leader at the bedside and recommended to continue as she is petitioned. Psychiatry evaluated the patient stating she meets criteria for inp atient psychiatric unit on 3 [address]. patient has been observed on telemetry monitoring in sinus rhythm with a heart rate of 81, blood pressure is 112/72 and oxygen saturation is 98% on room air. Patient is medically stable for transfer to 3 [address]. inpatient psychiatric facility for further evaluation. Recommend continue safety and suicide sitter at the bedside for now. Continue suicide precautions. Prognosis is guarded. Patient is medically stable and cleared for transfer to [address]. inpatient psychiatr ic unit once a bed becomes available. The impression and plan of care has been dictated by Carmen Jose, nurse practitioner as directed. Dr. Charlene MURILLO I have performed a history and examination and MDM of this patient, discussed the same with the dictator, and agree with the dictator's assessment and plan as written ,documented as a scribe. Based on total visit time, I have performed more than 50% of the visit. Any additional findings or plans will be noted. Past Medical History Past Medical History: No Reported History History of Any Multi-Drug Resistant Organisms: None Reported Past Surgical History: No Surgical Hx Reported Past Anesthesia/Blood Transfusion Reactions: No Reported Reaction Past Psychological History: No Psychological Hx Reported Smoking Status: Never smoker Past Alcohol Use History: None Reported Past Drug Use History: None Reported Medications and Allergies Home Medications Medication Instructions Recorded Confirmed Type Albuterol Sulfate [Ventolin HFA] 1 - 2 puff INHALATION RT-Q6H PRN 08/13/22 08/13/22 History FLUoxetine HCL 20 mg PO DAILY 08/13/22 08/13/22 History Famotidine [Pepcid] 20 mg PO HS PRN 08/13/22 08/13/22 History Medroxyprogesterone Acetate 150 mg IM Q84D 08/13/22 08/13/22 History [Depo-Provera] Omeprazole 20 mg PO AC-BRKFST 08/13/22 08/13/22 History Rizatriptan Benzoate [Maxalt] 10 mg PO BID PRN 08/13/22 08/13/22 History Allergies Allergy/AdvReac Type Severity Reaction Status Date / Time No Known Allergies Allergy Verified 08/13/22 08:51 Physical Exam Vitals: Vital Signs Temp Pulse Pulse Resp BP BP Pulse Ox 08/13/22 07:25 98.1 F 78 16 112/66 99 08/13/22 05:14 97.9 F 105 H 16 143/89 97 08/13/22 03:53 106 H 18 129/83 99 08/13/22 02:35 112 H 16 08/13/22 01:22 99 F 128 H 16 151/95 98 Intake and Output 08/12/22 08/13/22 08/13/22 22:59 06:59 14:59 Intake Total 1999 Balance 1999 Intake: Intake, IV Titration 2000 Amount Sodium Chloride 0.9% 1, 1000 000 ml @ 999 mls/hr IV . Q1H1M STA Rx#:[id number] Sodium Chloride 0.9% 1, 1000 000 ml @ 999 mls/hr IV . Q1H1M STA Rx#:[id number] Other: Weight 90.718 kg Results CBC & Chem 7: 08/13/22 01:33 08/13/22 01:33 Labs: Abnormal Lab Results - Last 24 Hours (Table) 08/13/22 08/13/22 08/13/22 Range/Units 01:33 01:33 01:33 WBC 11.1 H (4.0-11.0) k/uL MCV 78.1 L (80.0-100.0) fL Neutrophils # 9.1 H (1.3-7.7) k/uL Chloride 108 H (98-107) mmol/L Carbon Dioxide 20 L (22-30) mmol/L Glucose 126 H (74-99) mg/dL U Benzodiazepines Scrn Detected H (NotDetected) Thrombosis Risk Factor Assmnt - Choose All That Apply Any of the Below Risk Factors Present?: No Other Risk Factors: No Other congenital or acquired thrombophilia - If yes, enter type in comment: No Thrombosis Risk Factor Assessment Level: Very Low Risk Assessment and Plan Time with Patient: Greater than 30
--- NOTE | 2022-08-13 15:05 | P.DS ---
Providers Date of admission: 08/13/22 03:08 Expected date of discharge: 08/13/22 Attending physician: Lucian Lawrence Consults: 08/13/22 03:08 Consult Physician Routine Consulting Provider: Tye Edge Reason/Comments: suicide attempt. Prozac overdose Do you want consulting provider notified?: Yes Primary care physician: Beatriz Hobbs Hospital Course: Final diagnosis Suicidal ideation with suicide attempt with overdose ingesting 10-30 Prozac History of anxiety/depression Sinus tachycardia Mild leukocytosis, likely reactive Previous suicide attempts GI prophylaxis DVT prophylaxis Full code Discharge disposition Patient is being transferred in a stable condition with guarded prognosis to community hospital inpatient psychiatric unit for further psychiatric evaluation. Patient will follow-up with Dr. Hobbs in the outpatient setting upon discharge. Patient will need to follow with her psychiatrist in the outpatient setting on discharge. Total time taken is greater than 35 minutes. Hospital course This is a 21-year-old female who was recently admitted with intentional ingestion of Prozac approximately 10-30 pills that she is normally prescribed by her psychiatrist during an argument with her boyfriend and was having increased suicidal ideation with suicide attempt. Poison control was notified and patient to be monitored on telemetry for her sinus tachycardia. Labs within normal limits and patient is currently sinus rhythm with a heart rate of 81. Patient has been evaluated by psychiatry recommending transfer to inpatient psychiatric unit for further evaluation and medication and mental health management. Patient is medically stable and will be transferred there once a bed becomes available. Currently no reports of chest pain, shortness of breath, or palpitations. Patient is afebrile. No reports of nausea or vomiting and patient is tolerating diet. Guarded prognosis. Recommend continue suicide sitter Physical exam: Gen: This is a 21-year-old female who is awake, alert and oriented 3, well- developed, well-nourished HEENT: Head is atraumatic, normocephalic. Pupils equal, round. Sclerae is anicteric. NECK: Supple. No JVD. No lymphadenopathy. No thyromegaly. LUNGS: Clear to auscultation. No wheezes or rhonchi. No intercostal retractions. HEART: S1, S2 are muffled ABDOMEN: Soft. Bowel sounds are present. No masses. No tenderness. EXTREMITIES: No pedal edema. No calf tenderness. NEUROLOGICAL: Patient is awake, alert and oriented x3. Cranial nerves 2 through 12 are grossly intact. Please refer to medication reconciliation sheet for a list of medications. The impression and plan of care has been dictated by Carmen Jose, Nurse Practitioner as directed. Dr. Charlene MD I have performed a history and examination and MDM of this patient, discussed the same with the dictator, and agree with the dictator's assessment and plan as written ,documented as a scribe. Based on total visit time, I have performed more than 50% of the visit. Patient Condition at Discharge: Serious Plan - Discharge Summary Discharge Rx Participant: Yes New Discharge Prescriptions: No Action Rizatriptan Benzoate [Maxalt] 10 mg PO BID PRN PRN Reason: Migraine Headache Albuterol Sulfate [Ventolin HFA] 1 - 2 puff INHALATION RT-Q6H PRN PRN Reason: Shortness Of Breath FLUoxetine HCL 20 mg PO DAILY Omeprazole 20 mg PO AC-BRKFST Medroxyprogesterone Acetate [Depo-Provera] 150 mg IM Q84D Famotidine [Pepcid] 20 mg PO HS PRN PRN Reason: Heartburn Discharge Medication List Albuterol Sulfate [Ventolin HFA] 1 - 2 puff INHALATION RT-Q6H PRN 08/13/22 [History] FLUoxetine HCL 20 mg PO DAILY 08/13/22 [History] Famotidine [Pepcid] 20 mg PO HS PRN 08/13/22 [History] Medroxyprogesterone Acetate [Depo-Provera] 150 mg IM Q84D 08/13/22 [History] Omeprazole 20 mg PO AC-BRKFST 08/13/22 [History] Rizatriptan Benzoate [Maxalt] 10 mg PO BID PRN 08/13/22 [History] Follow up Appointment(s)/Referral(s): Beatriz Hobbs MD [Primary Care Provider] - 1-2 days Activity/Diet/Wound Care/Special Instructions: Patient is medically stable and clear for transfer to inpatient psychiatric unit 3 [address]. for further psychiatric evaluation Discharge Disposition: TRANSFER TO PSYCH HOSP/UNIT
[2022-08-14] MEDS ORDERED: PANTOPRAZOLE 40 MG TABLET PO SCH (07:30)
== END 2022-08-13 18:22 ==
LOC: EC 01:03 → 5NMEDONC 03:08
PROVIDERS: ADMIT Internal Medicine; ATTEND Internal Medicine
DX: T43.222A Poisoning by selective serotonin reuptake inhibitors, intentional self-harm, initial encounter (principal); R00.0 Tachycardia, unspecified; R45.851 Suicidal ideations; D72.829 Elevated white blood cell count, unspecified; Z79.899 Other long term (current) drug therapy; F41.9 Anxiety disorder, unspecified; F32.A Depression, unspecified; Z79.3 Long term (current) use of hormonal contraceptives
CPT/HCPCS: 96361 ×2; 96360; 99291; 36415; 93005; 80053; 82150; 83605; 83690; 84484; 85025; 85610; 81003; 81025; 84703; 80306; 80143; 87635; 80179; 71045; G0378; G0480; J1644; 80320

== ENCOUNTER 2022-08-13 16:21 | Inpatient (IN) | payer MEDICAID, OTHER ==
[2022-08-13] MEDS ORDERED: HALOPERIDOL LACTATE 5 MG/ML 1 ML VIAL IM PRN (16:44)
[2022-08-13] MEDS ORDERED: MAGNESIUM HYDROXIDE 2,400 MG/10 ML CUP PO PRN (16:44)
[2022-08-13] MEDS ORDERED: SUMAtriptan succinate 50 MG TAB PO PRN (16:47)
[2022-08-13] MEDS ORDERED: FAMOTIDINE 20 MG TAB PO PRN (16:47)
[2022-08-13] MEDS: traZODone HCL 50 MG TAB PO SCH (19:52)
[2022-08-13] MEDS: ACETAMINOPHEN TAB 325 MG TAB PO PRN (19:53)
[2022-08-14] MEDS ORDERED: PANTOPRAZOLE 40 MG TABLET PO SCH (07:30)
[2022-08-14] MEDS: NICOTINE 14MG/24HR PATCH TRANSDERM SCH (09:02)
[2022-08-14] MEDS: ACETAMINOPHEN TAB 325 MG TAB PO PRN (12:42)
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
[2022-08-14] MEDS: MAG HYDROX/AL HYDROX/SIMETH 30 ML CUP PO PRN (18:16)
[2022-08-14] MEDS: SERTRALINE 50 MG TAB PO SCH (20:57)
[2022-08-14] MEDS: traZODone HCL 50 MG TAB PO SCH (20:57)
[2022-08-14] MEDS: lamoTRIgine 25 MG TAB PO SCH (20:57)
[2022-08-15 06:33] VITALS: RESP 16
[2022-08-15] MEDS: NICOTINE 14MG/24HR PATCH TRANSDERM SCH (08:37)
[2022-08-15] MEDS: ACETAMINOPHEN TAB 325 MG TAB PO PRN (12:22)
[2022-08-15] MEDS: MAG HYDROX/AL HYDROX/SIMETH 30 ML CUP PO PRN (12:42)
[2022-08-15] MEDS: LORazepam 1 MG TAB PO PRN ×2 (18:45→23:45)
[2022-08-15] MEDS: lamoTRIgine 25 MG TAB PO SCH (20:55)
[2022-08-15] MEDS: SERTRALINE 50 MG TAB PO SCH (20:55)
[2022-08-15] MEDS: traZODone HCL 50 MG TAB PO SCH (20:55)
[2022-08-15] MEDS: LORATADINE 10 MG TAB PO PRN (20:56)
--- NOTE | 2022-08-15 21:56 | P.PN ---
Progress Note - Text Progress Note Date: 08/15/22 Interval history: Patient was seen attending group and was directable and agreeable to speak with sports writer. She reports mood lability and states she was angry earlier in the day when she was not able to reach her family. At this time patient denies any suicidal or homicidal ideation, intent or plan. Denies any auditory or visual hallucinations. Patient denies any side effects from the medications and has been compliant with meds. She complains of headache, nasal congestion and cough from postnasal drip. She has been tested for COVID which was negative. No rash from Lamictal. Mental status exam: General Appearance: Patient appears to be stated age, dressed in casual attire, fair hygiene. Behavior: No agitated behavior. Patient is anxious but directable. Speech: Patient's speech is fluent and non-pressured. Mood/Affect: Mood is irritable, affect is congruent and constricted. Suicidality/Homicidality: Patient denies having any suicidal or homicidal ideation intent or plan. Perceptions: Patient denies any auditory or visual hallucinations. Though content/process: There is no evidence of any delusional thought content and thought process is linear and goal-directed. Memory and concentration: AOX3, grossly intact for the purposes of this session Judgment and insight: improving mildly Assessment/Plan: Continue with current diagnosis. Patient continues to meet criteria for inpatient psychiatric admission for symptom stabilization and safety. Start Claritin for sinus nasal congestion and cough from postnasal drip. Monitor for medication compliance and for any psychotropic medication side effects. Will continue to monitor ongoing response to treatment. Encouraged participation in milieu.
[2022-08-16] MEDS: ALBUTEROL HFA INHALER INHALATION PRN ×4 (08:19→22:43)
[2022-08-16] MEDS: LORATADINE 10 MG TAB PO PRN (08:20)
[2022-08-16] MEDS: LORazepam 1 MG TAB PO PRN (18:12)
[2022-08-16] MEDS: SERTRALINE 50 MG TAB PO SCH (20:01)
[2022-08-16] MEDS: lamoTRIgine 25 MG TAB PO SCH (20:01)
[2022-08-16] MEDS: traZODone HCL 50 MG TAB PO SCH (20:01)
[2022-08-16] MEDS ORDERED: SERTRALINE 50 MG TAB PO STA (20:25)
[2022-08-16] MEDS ORDERED: LORazepam 0.5 MG TAB PO PRN (20:26)
--- NOTE | 2022-08-16 22:52 | P.PN ---
Progress Note - Text Progress Note Date: 08/16/22 Interval history: Patient was seen attending group and was directable and agreeable to speak with health underwriter. She reports mood is better today, but also was anxious earlier and received Ativan 1 mg po x 1 for anxiety. She reports she continues to feel shaky and upset/mad due to life stressors. At this time patient denies any suicidal or homicidal ideation, intent or plan. Denies any auditory or visual hallucinations. Patient denies any side effects from the medications and has been compliant with meds. No rash from Lamictal. Mental status exam: General Appearance: Patient appears to be stated age, dressed in casual attire, fair hygiene. Behavior: No agitated behavior. Patient is anxious but directable. Speech: Patient's speech is fluent and non-pressured. Mood/Affect: Mood is improving mildly, affect is congruent and constricted. Suicidality/Homicidality: Patient denies having any suicidal or homicidal ideation intent or plan. Perceptions: Patient denies any auditory or visual hallucinations. Though content/process: There is no evidence of any delusional thought content and thought process is linear and goal-directed. Memory and concentration: AOX3, grossly intact for the purposes of this session Judgment and insight: improving mildly Assessment/Plan: Continue with current diagnosis. Patient continues to meet criteria for inpatient psychiatric admission for symptom stabilization and safety. Increase Zoloft from 50 mg QHS to 100 mg QHS starting tonight for depression/anxiety. Monitor for medication compliance and for any psychotropic medication side effects. Will continue to monitor ongoing response to treatment. Encouraged participation in milieu.
[2022-08-17 06:44] VITALS: BP 116/65; PULSE 80; TEMP 97.8
[2022-08-17] MEDS: ALBUTEROL HFA INHALER INHALATION PRN ×2 (07:10→12:45)
[2022-08-17] MEDS: LORATADINE 10 MG TAB PO PRN (07:43)
--- NOTE | 2022-08-17 11:34 | P.DS ---
Providers Date of admission: 08/13/22 17:54 Expected date of discharge: 08/17/22 Attending physician: Tye Edge MD Consults: 08/13/22 16:44 Consult Physician Routine Consulting Provider: Jerry Palomoists Consult Reason/Comments: H&P Do you want consulting provider notified?: Yes Primary care physician: Beatriz Hobbs - Discharge Diagnosis(es) (1) Major depressive disorder Current Visit: Yes Status: Acute Priority: High (2) Borderline personality disorder Current Visit: Yes Status: Chronic Priority: High Hospital Course: Admission HPI: chinyere is a single, unemployed, 21-year-old female with a significant history of depression who presented to our hospital after intentional overdose on prozac. The patient presented to the hospital on 08/13/2022 after an intentional overdose on Prozac. She was subsequently admitted medically and stabilized. She was assessed and transferred to the psychiatric unit. Patient signed onto the psychiatric unit voluntarily. From the initialy psychiatric consult: "The patient reported that she was in an argument with her boyfriend and during this argument, the patient took a bunch of Prozac pills in her hand and ingested them all at once. She reports her intention at the time was to "go numb." She reports that 5 minutes after overdosing, she immediately wanted her family to notify EMS services. She was subsequently brought to the emergency department and the patient by [place] police. She reports that even prior to this overdose attempt, she has been dealing with significant symptoms of depression including decreased motivation, decreased energy, irregular appetite, and frequent crying episodes. She describes that she has been constantly laying down in bed all day. She does report that even prior to this overdose attempt, she engaged in self-injurious behavior by cutting herself on her left forearm 2 nights ago. Patient states that she has had numerous attempts at suicide in the past by overdose however this is the first time that she has been to the hospital for this. In regards other mood disorders, the patient is not endorsing any significant symptoms of mimi. She denies any periods of excessive energy, grandiosity, or increased goal-directed activity. In regards to psychotic symptoms, the patient denies any significant history of auditory or visual hallucinations. She denies any paranoia or other delusions." Patient reported no changes to the above history. She reports no medical issues or concerns to this provider. Denies any chest pain, SOB, palpitations, nausea, vomiting, or diarrhea/constipation. Patient has a a history of depression. She has a previous trial with Prozac. Patient denies any previous psychiatric hospitalizations. Patient denies any psychiatric outpatient follow-up as she recently moved from [place] to [place] to be with her mother. She reports multiple attempts at suicide in the past by overdose. Hospital course: Upon admission to the unit patient was initially presenting as calm and cooperative. Patient was directable and agreeable to commence treatment. Patient got along well with other patients on the unit and followed unit protocol. Patient was compliant with the medications and denied any side effects throughout hospital course. Patient was started on Lamictal for mood stability and Zoloft for depression/anxiety. Patient spoke of her stressors and engaged in therapy both group and individual. Patient was also seen by medical team for history and physical exam. Throughout the course of the hospitalization patient gradually improved with regards to mood, coping skills,sleep and became future oriented with improved insight and judgment. On the day of discharge patient denied any suicidal or homicidal ideations intent or plan denied any auditory or visual hallucinations. Patient endorsed wanting to live for her health and her family. The patient denied any access to guns or weapons. Patient denied any paranoia and did not endorse any delusions. Patient does not have a significant history of substance abuse however was counseled on abstaining from all substances including alcohol and marijuana. Patient was also counseled on the medications and need for regular compliance and was encouraged to follow-up with their outpatient appointment for mental health and also for primary care. Prior to discharge a family meeting will be arranged by psych social worker to answer any questions and ensure safety upon discharge. She was encouraged to follow-up in the outpatient setting and to learn DBT. Mental status exam: General Appearance: Patient appears to be stated age is alert, pleasant, and cooperative. Patient is in no acute distress and has fair hygiene and grooming Behavior: Patient is calmly seated without any agitated behavior. Speech: Patient's speech is fluent and nonpressured. Mood/Affect: Patient reports their mood is "much better", affect is congruent and euthymic to bright. Suicidality/Homicidality: Patient denies having any suicidal or homicidal ideation intent or plan. Perceptions: Patient denies any auditory or visual hallucinations. Though content/process: There is no evidence of any delusional thought content and thought process is linear and goal-directed. She is future and goal oriented. Memory and concentration: AOX3, grossly intact for the purposes of this session. Can spell "WORLD" backwards correctly. Judgment and insight: Improved with guarded prognosis Impression: Major depressive disorder Borderline personality disorder Plan: -Continue with discharge today as patient has improved and stabilized psychiatrically and is not currently an imminent threat to herself and/or others. Patient will remain at chronically elevated risk for harm to self and/or others due to her previous attempts at suicide and poor ego integrity. -Continue medications: Lamictal 25 mg by mouth at bedtime for mood stability Trazodone 50 mg by mouth at bedtime for depression Zoloft 100 mg by mouth at bedtime for depression/anxiety -Patient was counseled on the need for medication compliance and appropriate follow-up at mental health and also primary care for medical issues. Patient verbalized understanding and agreed. -Social work to arrange for and conduct family meeting to ensure safety upon discharge and answer any questions/concerns. Social work also to arrange for patients follow up appointments with [facility] for psychiatric care along with follow up with primary care provider. -Patient counseled on abstaining from recreational drugs and marijuana and alcohol. Was informed/educated on the adverse effects on their physical and mental health. Patient verbally agreed and understood. -Patient was instructed to return to the hospital or seek immediate medical care if their psychiatric or medical symptoms do worsen or reoccur. -Psychoeducation and supportive therapy provided to patient. Risks and benefits of pharmacological treatment versus the risks and benefits of nontreatment weight and discussed. Informed consent discussion held. Common side effects of psychotropics discussed such as, but not limited to headache, GI disturbance, sexual dysfunction, movement disorders, sedation, and orthostatic hypotension. Life threatening and blackbox warnings of prescribed medications also discussed. Potential risks of operating a vehicle or heavy machinery discussed with patient at length. Advised on importance of compliance and a reliable and responsible manner. Patient advised to review FDA consumer labeling of all medications prior to taking. Patient verbalized understanding of potential risks, and agrees with current treatment plan. Patient advised to medically contact physician/emergency personnel if any acute changes in condition occur. SEE PREVIOUS MEDICAL ADMISSION FOR LABS. Vital Signs Temp 97.8 F 08/17/22 06:43 Pulse 80 08/17/22 06:43 Resp 16 08/17/22 06:43 BP 116/65 08/17/22 06:43 Pulse Ox 99 08/17/22 06:43 FiO2 Intake & Output 08/16/22 08/17/22 08/17/22 18:59 06:59 18:59 Weight 90.9 kg Allergies Allergy/AdvReac Type Severity Reaction Status Date / Time No Known Allergies Allergy Verified 08/13/22 08:51 Patient Condition at Discharge: Stable Plan - Discharge Summary Discharge Rx Participant: Yes New Discharge Prescriptions: New lamoTRIgine [LaMICtal] 25 mg PO HS 30 Days #30 tab traZODone HCL [Desyrel] 50 mg PO HS 30 Days #30 tab Sertraline [Zoloft] 100 mg PO HS 30 Days #30 tab Continue Rizatriptan Benzoate [Maxalt] 10 mg PO BID PRN PRN Reason: Migraine Headache Albuterol Sulfate [Ventolin HFA] 1 - 2 puff INHALATION RT-Q6H PRN PRN Reason: Shortness Of Breath Omeprazole 20 mg PO AC-BRKFST Medroxyprogesterone Acetate [Depo-Provera] 150 mg IM Q84D Famotidine [Pepcid] 20 mg PO HS PRN PRN Reason: Heartburn Discontinued FLUoxetine HCL 20 mg PO DAILY Discharge Medication List Albuterol Sulfate [Ventolin HFA] 1 - 2 puff INHALATION RT-Q6H PRN 08/13/22 [History] Famotidine [Pepcid] 20 mg PO HS PRN 08/13/22 [History] Medroxyprogesterone Acetate [Depo-Provera] 150 mg IM Q84D 08/13/22 [History] Omeprazole 20 mg PO AC-BRKFST 08/13/22 [History] Rizatriptan Benzoate [Maxalt] 10 mg PO BID PRN 08/13/22 [History] Sertraline [Zoloft] 100 mg PO HS 30 Days #30 tab 08/17/22 [Rx] lamoTRIgine [LaMICtal] 25 mg PO HS 30 Days #30 tab 08/17/22 [Rx] traZODone HCL [Desyrel] 50 mg PO HS 30 Days #30 tab 08/17/22 [Rx] Follow up Appointment(s)/Referral(s): Carl Orantes [facility] [Outside] - 08/26/22 12:30 pm (Hand[facility]) Beatriz Hobbs MD [Primary Care Provider] - 1 Week Patient Instructions/Handouts: Depression (DC), Abuse of Alcohol (DC), Borderline Personality Disorder (GEN) Activity/Diet/Wound Care/Special Instructions: Avoid the use of street drugs and alcohol. Take all prescriptions as prescribed. When you are in need of refills on your medications, please contact your medical provider and/or outpatient psychiatrist to have this done. Please go to scheduled outpatient appointment for aftercare treatment. If symptoms return or become worse, call the crisis line at and/or go to the nearest emergency room for evaluation Discharge Disposition: HOME SELF-CARE
[2022-08-17] MEDS ORDERED: SERTRALINE 100 MG TAB PO SCH ×2 (21:00)
== END 2022-08-17 12:47 | disposition home or self-care (01) | DRG 881 ==
LOC: 3MHU 17:54
PROVIDERS: ADMIT Psychiatry & Neurology Psychiatry; ATTEND Psychiatry & Neurology Psychiatry
DX: F32.9 Major depressive disorder, single episode, unspecified (principal); F60.3 Borderline personality disorder; F41.9 Anxiety disorder, unspecified; T43.222A Poisoning by selective serotonin reuptake inhibitors, intentional self-harm, initial encounter; Z20.822 Contact with and (suspected) exposure to COVID-19; Z79.899 Other long term (current) drug therapy